=== PATIENT | male | born 1985 | race Caucasian/White ===

== ENCOUNTER 2025-05-13 | Emergency (ER) | payer SELFPAY ==
--- OUTSIDE RECORDS SUMMARY | 2025-05-13 00:09 | XMS_ITS | Clinical Summary ---
Author Organization [facility] Address [address] [place] [address] Care Team Providers Care Commissary Clerk Name Role Phone Unavailable Primary Care Provider Unavailabl e Social History Tobacco Use Types Packs/Day Years Used Date Smoking Tobacco: Never Assessed Sex and Gender Information Value Date Recorded Sex Assigned at Not on file Legal Sex Male 4:30 PM EDT Gender Identity Not on file Sexual Orientation Not on file Plan of Treatment Health Maintenance Due Date Last Done Comments HIV Screening 1987 Hepatitis C Screening 1987 Lipid Panel 1987 Medicare Annual Wellness (AWV) 1987 MMR Vaccines (1 of 1 - Stand tony series) 1988 Varicella Vaccines (1 of 2 - 13+ 2-dose series) 2000 Hepatitis B Screening 2005 DTaP/Tdap/Td Vaccines (1 - Tdap) 2006 Hepatitis A Vaccines (1 of 2 - Risk 2-dose series) 2006 Hepatitis B Vaccines (1 of 3 - 19+ 3-dose series) 2006 Pneumococcal Vaccine (1 of 2 - PCV) 2006 COVID-19 Vaccine (1 - 2023-2 5 season) 2024 Depression Risk Screening 09/10/2024 SDOH Screening 09/10/2024 Influenza Vaccine (#1) 2025 Zoster Vaccines (1 of 2) 2037 HIB Vaccines Aged Out No longer eligi ble based on patient's age to complete this topic HPV Vaccines Aged Out No longer eligi ble based on patient's age to complete this topic IPV Vaccines Aged Out No longer eligi ble based on patient's age to complete this topic Meningococcal B Vaccine Aged Out No l onger eligible based on patient's age to complete this topic Meningococcal Vaccine Aged Out No natasha reza eligible based on patient's age to complete this topic Rotavirus Vaccines Aged Out No longer eligible based on patient's age to complete this topic Insurance MEDICARE
--- OUTSIDE RECORDS SUMMARY | 2025-05-13 00:09 | XMS_ITS | Clinical Summary ---
Author Organization [facility] Address [address] [place] [address] Care Team Providers Care Polysomnography Tech Name Role Phone Jackelyn Lee DO, Praveen Primary Care Provider [phone] Allergies No known active allergies Medications losartan (COZAAR) 25 MG tablet Take 1 tablet by mouth Daily. Active QUEtiapine XR (SEROquel XR) 300 MG 24 hr tablet Take 1 tablet by mouth Every Night. Active HYDROcodone-yumiko taminophen (NORCO) 7.5-325 MG per tablet Take 2 tablets by mouth 2 (Two) Times a Day As Needed for Moderate Pain. Active folic acid (FOLVITE) 1 MG tablet Take 1 tablet by mouth Daily. Active Thiamine HCl (vitamin B-1) 50 MG tablet Take 1 tablet by mouth Daily. Active Active Problems Problem Noted Date Diagnosed Date Alcoholic ketoacidosis 07/21/2023 Social History Tobacco Use Types Packs/Day Years Used Date Smoking Tobacco: Every Day Cigarettes 1 15 Smokeless Tobacco: Current Tobacco Cessation:Ready to Q uit: No Alcohol Use Standard Drinks/Week Comments Yes 35 (1 standard drink = 0.6 oz pu re alcohol) AUDIT-C Answer Date Recorded Q1: How often do you have a drink containing alcohol? 4 or more times a week 07/21/2023 Q2: How many drinks containi ng alcohol do you have on a typical day when you are drinking? 5 or 6 Q3: How often do you have si x or more drinks on one occasion? Monthly 07/21/2023 Abuse Screen Answer Date Recorded Feels Unsafe at Home or Work/School no 08/04/2023 Feels Threatened by Someone no 07/12 Does Anyone Try to Keep You From Having Contact with Others or Doing Things Outside Your Home? 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 Not on file Preferred Language Not on file 07/21/2023 Sex and Gender Information Value Date Recorded Sex Assigned at Not on file Legal Sex Male 9:43 AM EST Gender Identity Not on file Sexual Orientation Not on file Last Filed Vital Signs Vital Sign Reading Time Taken Comments Blood Pressure 159/119 08/04/2023 1:11 PM EST Pulse 72 08/04/2023 3:56 PM EST Temperature 36.5 C (97.7 F) 08/04/2023 11:45 AM EST Respiratory Rate 17 08/04/2023 11:45 AM EST Oxygen Saturation 92% 08/04/2023 3:56 PM EST Inhaled Oxygen Concentration - - Weight 81.6 kg (180 lb) 08/04/2023 11:44 AM EST Height 180.3 cm (5' 11 ) 08/04/2023 11:44 AM EST Body Mass Index 25.1 08/04/2023 11:44 AM EST Plan of Treatment Health Maintenance Due Date Last Done Comments ANNUAL PHYSICAL 1987 HEPATITIS C SCREENING 1987 COVID-19 Vaccine ( - 2023-2 5 season) 2024 INFLUENZA VACCINE 06/10/2025 TDAP/TD VACCINES (2 - Td or Tdap) 08/03/2033 023 Pneumococcal Vaccine 0-49 Aged Out No longer eligible based on patient's age to complete this topic Advance Directives * CPR (Attempt to Resuscitate) (Latest Code Status on File) Date Activated Date Inactivated Comments 07/21/2023 3:12 PM 07/22/2023 5:57 AM Question Answer Comments Code Status (Patient has no pulse and is not breathing): CPR (Attempt to Resuscitate) Medical Interventions (Patie nt has pulse or is breathing): Full Support Care Teams Polysomnography Tech Relationship Specialty Start Date End Date Osiel Dyer DO [address] [place], [place] [id number] PCP - General Internal Medicine 07/21/23
--- OUTSIDE RECORDS SUMMARY | 2025-05-13 00:09 | XMS_ITS | Clinical Summary ---
Author Organization [facility] Address [address] [place] [address] Care Team Providers Care Magneto Specialist Name Role Phone Manisha Osiel Orozco DO Primary Care Provider [phone] Allergies No known active allergies Medications Multiple Vitamins-Minerals (MULTIVITAMIN WITH MINERALS) Take 1 tablet by mouth daily. 30 tablet 2 5:57 PM EDT 07/05/20 22 Active carvedilol (COREG) 12.5 MG tablet Take 1 tablet by mouth twice daily with meals. 60 tablet 3 5:18 PM EDT 12/26/19 23 Active folic acid (FOLVITE) 1 MG tablet Take 1 tablet by mouth once daily. 30 tablet 3 5:18 PM EDT 12/26/19 23 Active vitamin B-1 100 MG tablet Take 1 tablet by mouth once daily. 30 tablet 3 5:18 PM EDT 12/26/19 23 Active losartan (COZAAR) 25 MG tablet Take 1 tablet by mouth once daily 14 tablet 2 3 12:41 PM EDT 04/13/20 23 Active ondansetron (ZOFRAN-ODT) 4 MG disintegrating tablet Take 1 tablet by mouth every 8 (eight) hours as needed for Nausea. 15 tablet 04/30/20 23 Active sucralfate (CARAFATE) 1 g tablet Take 1 tablet by mouth 4 (four) times daily. 120 tablet 10/28/19 24 Active pantoprazole (PROTONIX) 40 MG tablet Take 1 tablet by mouth 2 (two) times daily for 14 doses. 28 tablet 05/31/20 24 Active QUEtiapine (SEROQUEL) 300 MG tablet Take 1 tablet by mouth nightly for 14 days. 14 tablet 4 12:18 PM EDT 05/31/20 24 Active senna-docusate (PERICOLACE) 8.6-50 MG Take 1 tablet by mouth daily as needed for Constipati on. 14 tablet 08/24/20 24 Active meloxicam (MOBIC) 15 MG tablet Take 1 tablet by mouth daily. 30 tablet 2 3:10 PM EDT 04/27/20 22 022 Discontinued Thiamine Mononitrate 100 MG TABS Take 1 tablet by mouth daily. 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 Alcohol abuse with withdrawal 10/25/2023 Alcoholic hepatitis 05/09/2023 Acute pancreatitis without infection or necrosis 03/25/2023 Dehydration 12/22/2022 Anxiety and depression 12/22/2022 Tobacco abuse 09/24/2022 Edwards's esophagus 09/08/2022 High anion gap metabolic acidosis 07/19/2022 ETOH abuse 03/23/2022 Chronic back pain 03/23/2022 Elevated LFTs 03/23/2022 Hypertension 06/16/2021 Pars defect with spondylolisthesis 05/30/2017 Resolved Problems Problem Noted Date Diagnosed Date Resolved Date COVID 08/13/2023 10/26/2023 Thrombocytopenia 05/09/2023 10/26/2023 Acute pancreatitis after end oscopic retrograde cholangiopancreatography (ERCP) 05/09/2023 05/09/2023 Seizure 04/09/2023 10/26/2023 Esophagitis 04/09/2023 10/26/2023 Overview (04/10/2023): Added automatically from request for surgery [id number] Withdrawal seizures 12/22/2022 12/23/19 23 Acute respiratory failure 12/22/2022 Aspiration pneumonia 12/22/2022 024 Seizure 11/14/2022 12/22/2022 Hypophosphatemia 2022 12/22/2022 Hypomagnesemia 2022 12/22/2022 Alcohol-induced acute pancre atitis without infection or necrosis 09/24/2022 10/26/2023 Alcohol withdrawal seizure, uncomplicated 08/31/2022 12/22/2022 TERESA (acute kidney injury) 08/20/2022 Upper GI bleed 06/29/2022 12/22/2022 Alcohol related seizure 06/03/202209/10 Acute pancreatitis 04/18/2022 Alcohol withdrawal 04/18/2022 Acute pancreatitis without i nfection or necrosis 04/18/2022 12/22/2022 Alcohol withdrawal seizure w ith complication, with unspecified complication 03/23/2022 12/22/2022 Alcohol intoxication in acti ve alcoholic with complication 03/23/2022 10/26/2023 Seizure 03/23/2022 09/24/2022 Hematemesis 02/11/2022 12/22/2022 GI bleeding 02/10/2022 12/22/2022 Alcohol withdrawal seizure w ithout complication 12/05/2021 12/22/2022 Injury of kidney 06/16/2021 12/22/2022 Acute bilateral low back pain 05/30/2017 12/22/2022 Immunizations Immunization Administration Dates Next Due Tdap 08/03/2023 Family History Medical History Relation Comments Hypertension Father Suicidality Father Suicide Completed Father Cancer, Other or Unknown Type Mother Hypertension Mother Relation Status Comments Father Mother Social History Tobacco Use Types Packs/Day Years Used Date Smoking Tobacco: Every Day Cigarettes 0.3 15 Smokeless Tobacco: Never Tobacco Cessation:Ready to Q uit: No; Counseling Given: Not Answered Comments:Eventually. Alcohol Use Standard Drinks/Week Comments Yes 0 (1 standard drink = 0.6 oz pure alcohol) up to a pint of hard alcohol daily PHQ-2 Answer Date Recorded PHQ2 (SDOH) SCORE 6 06/16/2021 Hunger Vital Sign Answer Date Recorded Within the past 12 months, y ou worried that your food would run out before you got the money to buy more. Never true 04/03/20 23 Within the past 12 months, t he food you bought just didn't last and you didn't have money to get more. Never true 04/03/2023 PRAPARE - Transportation Answer Date Re corded In the past 12 months, has l ack of transportation kept you from medical appointments or from getting medications? No 03/11 In the past 12 months, has l ack of transportation kept you from meetings, work, or from getting things needed for daily living? No 04/03/2023 Housing Stability Vital Sign Answer Mark Anthony e Recorded In the last 12 months, was t here a time when you were not able to pay the mortgage or rent on time? No 04/03/2023 In the last 12 months, how many places have you lived? 1 04/03/2023 In the last 12 months, was t here a time when you did not have a steady place to sleep or slept in a half-way (including now)? No 04/03/2023 Sex and Gender Information Value Date Recorded Sex Assigned at Not on file Legal Sex Male 4:07 PM EST Gender Identity Not on file Sexual Orientation Not on file Last Filed Vital Signs Vital Sign Reading Time Taken Comments Blood Pressure 135/76 08/24/2024 12:00 PM EST Pulse 101 08/24/2024 12:00 PM EST Temperature 36.7 C (98.1 F) 08/24/2024 9:43 AM EST Respiratory Rate 16 08/24/2024 12:00 PM EST Oxygen Saturation 95% 08/24/2024 12:00 PM EST Inhaled Oxygen Concentration - - Weight 81.6 kg (180 lb) 08/24/2024 9:43 AM EST Height 180.3 cm (5' 11 ) 08/24/2024 9:43 AM EST Body Mass Index 25.1 08/24/2024 9:43 AM EST Plan of Treatment Health Maintenance Due Date Last Done Comments Hepatitis A (HepA) Vaccine ( 1 of 2 - Risk 2-dose series) 2006 Hepatitis B (HepB) Vaccine ( 1 of 3 - 19+ 3-dose series) 2006 Pneumococcal Vaccines 6-49 y o Risk (1 of 2 - PCV) 2006 HPV Vaccine (1 - 3-dose SCDM series) 2014 Annual SDOH Screening 09/10/2024 Influenza Vaccine (#1) 2025 Tdap/Td Vaccine >11 yo (2 - Td or Tdap) 08/03/2033 08/03/2023 Haemophilus Influenzae Type B (Hib) Vaccine Aged Out No longer eligible b ased on patient's age to complete this topic Meningococcal ACWY Aged Out No longer eligible based on patient's age to complete this topic Polio (IPV) Aged Out No longer eligi ble based on patient's age to complete this topic Rotavirus (RV) Vaccine Aged Out No lo nger eligible based on patient's age to complete this topic Insurance MEDICARE Advance Directives Documents on File Type Date Recorded 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 Living Will 09/20/2022 5:14 AM Power of Laborer/Key Man 03/02/2015 2:46 PM Living Will 03/02/2015 2:46 PM * Full Code (Latest Code Status on File) Date Activated Date Inactivated Comments 05/29/2024 2:11 PM 05/31/2024 2:53 PM * Full Code Date Activated Date Inactivated Comments 05/28/2024 6:25 PM 05/28/2024 8:46 PM * Full Code Date Activated Date Inactivated Comments 10/25/2023 8:57 PM 10/26/2023 8:39 AM * Full Code Date Activated Date Inactivated Comments 08/13/2023 10:35 PM 08/15/2023 8:22 PM * Full Code Date Activated Date Inactivated Comments 05/09/2023 6:16 PM 05/17/2023 12:02 PM Care Teams Magneto Specialist Relationship Specialty Start Date End Date Osiel Dyer DO [address] [place] [address] PCP - General Internal Medicine 05/29/24
--- OUTSIDE RECORDS SUMMARY | 2025-05-13 00:09 | XMS_ITS | Clinical Summary ---
Author Organization [facility] Address [address] [place] [address] Care Team Providers Care Machine Rough Rounder Name Role Phone Unavailable Primary Care Provider Unavailabl e Social History Tobacco Use Types Packs/Day Years Used Date Smoking Tobacco: Never Assessed Sex and Gender Information Value Date Recorded Sex Assigned at Not on file Legal Sex Male 10:46 AM EDT Gender Identity Not on file Sexual Orientation Not on file Plan of Treatment Health Maintenance Due Date Last Done Comments Hepatitis B Vaccine (1 of 3 - 19+ 3-dose series) 2006 Influenza Vaccine (#1) 2025 Pneumococcal Vaccine: Peds ( 0 to 5 Years) and At-Risk Patients (6 to 49 Years) Aged Out No longer eligible b ased on patient's age to complete this topic Insurance Medicare
[2025-05-13 00:28] VITALS: BP 147/108; PULSE 102; RESP 22; TEMP 36.9; O2SAT 100; BMI 25.1
--- NOTE | 2025-05-13 00:49 | ED_ITS ---
Discharge Plan Disposition Patient Disposition: Home, Self-Care Condition: Good Referrals Follow up/Referrals: Provider,Referral, [Primary Care Provider, Medical] - See instructions Activity Restrictions/Add. Instructions Additional Instructions/Restrictions: You were evaluated in the ER and are appropriate for discharge at this time. Continue taking any prescriptions as previously directed. Follow-up with your primary care doctor. Return to the ER with any new, worsening, or otherwise concerning symptoms peer Clinical Impressions Clinical Impression: Medical clearance for incarceration Print Language Print Language: Micronesian Discharge ED Provider: Kosta Montague Adult HPI General Chief complaint: Medical Clearance Stated complaint: medical clearance, blood draw Time Seen by Provider: 05/13/25 00:06 Mode of Arrival: Ambulatory Source of Information: Law Enforcement Description of Symptoms (Recalled from ER Triage Doc. by RN): pt reports to the ED for medical clearance for incarceration as well as for a legal blood draw. pt denies any new medical complaints at this time or any new pain. History of Present Illness HPI narrative: 39-year-old male with history of previous back injury and sciatica presents to the ER with law enforcement for medical clearance after being pulled over for possible DUI. Patient states he has chronic back pain and sciatica but nothing is in exacerbation. He denies any other symptoms. States he has not been ill recently. He states he is anxious from the situation but otherwise feels well. Admits to previous marijuana use. He has no complaints or concerns tonight and states he would not otherwise be in the ER if he had not been brought in by law enforcement. [facility] Disclaimer: The information contained in this section may have been updated after the patient was seen, as this information can be updated by other users. Social History Smoking Status: Current every day smoker alcohol intake: never current occupational status: employed Travel in the last 8 weeks?: None ROS Obtained: Yes Systems reviewed as appropriate & no additional complaints except as documented Constitutional Constitutional: Denies chills, Denies fever(s), Denies headache(s) and Denies weakness Eyes Eyes: Denies change in vision ENT Ears, Nose, Mouth, and Throat: Denies dizziness, Denies headache(s), Denies nasal congestion and Denies sore throat Cardiovascular Cardiovascular: Denies chest pain, Denies dyspnea and Denies leg edema Respiratory Respiratory: Denies shortness of breath, Denies cough and Denies dyspnea Gastrointestinal Gastrointestingal: Denies abdominal pain, constipation, diarrhea or vomiting Genitourinary Male Genitourinary: Denies difficulty urinating and Denies hematuria Musculoskeletal Musculoskeletal: Denies numbness and Denies tingling Comments: Chronic low back pain unchanged from prior Neurologic Neurologic: Denies dizziness, Denies headache(s), Denies numbness, Denies tingling and Denies weakness Physical Exam General General appearance: alert and anxious (Nontoxic, no acute distress) Head Head exam: atraumatic and normocephalic Eye Eye exam: Present PERRL and EOMI; Absent conjunctival injection or nystagmus ENT ENT exam: Present mucous membranes moist Neck Neck exam: Present normal inspection and full ROM Chest Chest inspection: Present symmetric chest wall rise Respiratory Respiratory exam: Present normal lung sounds bilaterally; Absent respiratory distress, wheezes or stridor Cardiovascular Cardiovascular exam: Present regular rate and normal rhythm Abdominal Exam Abdominal exam: Present soft; Absent distention or tenderness Extremities Exam Extremities exam: Present full ROM; Absent edema or joint swelling Back Exam Back exam: Absent tenderness, CVA tenderness (R) or CVA tenderness (L) Neurological Exam Neurological exam: Present alert, oriented X3 and other (No saddle anesthesia); Absent motor sensory deficit Psychiatric Psychiatric exam: Present normal affect and anxious Skin Skin exam: Present warm and dry Medical Decision Making Medical Records Screening: Per USPSTF and CDC recommendations, given the prevalence of disease in our region, it is our hospital?s policy to screen for HIV and viral Hepatitis for all patients aged 18 and over and those with ongoing risk factors. Fabio Inquiry Pt receiving controlled substance: No Vital Signs: 05/13/25 00:28 Temperature 98.5 F Temperature Source Oral Pulse Rate [Right] 102 H Respiratory Rate 22 Blood Pressure [Right Arm] 147/108 H Blood Pressure Mean [Right Arm] 121 02 Sat by Pulse Oximetry 100 Oxygen Delivery Method Room Air Medical Decision Narrative: In summary, 39-year-old male with history of low back injury presents to the ER with law enforcement for medical clearance. He has no complaints or concerns stating his chronic back pain with sciatica is at baseline and unchanged from prior. He has no saddle anesthesia or bowel or bladder incontinence, no red flag symptoms of acute or dangerous low back pain. On thorough review of systems he has no acute complaints or concerns. On initial evaluation he is hemodynamically stable, afebrile, anxious but behaving appropriately, GCS 15, no neurologic deficits. Overall physical exam is benign and reassuring aside from anxiety but patient has no SI or HI with no hallucinations or acute psychiatric abnormalities. He is appropriately anxious given the situation and is redirectable and able to carry on normal conversation. I do not believe patient requires any intervention, labratory workup, or imaging at this time. I believe he is appropriate for discharge at this time and patient is comfortable with this plan. Patient was given instructions on symptomatic management, follow up instructions, and return precautions for the emergency department. Patient indicated understanding and was discharged in stable condition with law enforcement. Critical Care Critical Care Time Critical Care Time: No
[2025-05-13 00:53] VITALS: BP 147/108; PULSE 102; RESP 20; TEMP 36.9; O2SAT 100
== END 2025-05-13 00:53 | disposition home or self-care (01) ==
PROVIDERS: Emergency Provider Emergency Medicine
DX: Z00.8 Encounter for other general examination (principal)
CPT/HCPCS: 99282